=== PATIENT | female | born 1995 | race Native Hawaiian/Other Pacific Islander ===

== ENCOUNTER 2018-08-15 09:42 | Outpatient (CLI) | payer BC | END 2018-08-15 19:22 | disposition home or self-care (01) | LOC: RAD 09:42 | DX: M25.511 Pain in right shoulder (principal) ==

== ENCOUNTER 2023-01-24 10:00 | Outpatient (CLI) | payer BC, OTHER | END 2023-01-24 19:20 | disposition home or self-care (01) | LOC: US 10:00 | PROVIDERS: ATTEND Registered Nurse | DX: R10.13 Epigastric pain (principal) ==